=== PATIENT | female | born 1990 | race Caucasian/White ===

== ENCOUNTER 2018-05-20 09:11 | Emergency (ER) | payer BC, OTHER ==
[~2018-05-20] VITALS: Ht 162.6 cm; Wt 54.4 kg
[2018-05-20] MEDS ORDERED: NS IV 1000 ML 1,000 ML ONE (09:35)
--- NOTE | 2018-05-20 09:56 | ED General ---
General Chief Complaint: Abdominal/GI Problems Stated Complaint: DIZZY,NAUSEA,LT SIDE PAIN Nursing Triage Note: PT REPORTS SHE HAS NAUSEA, DIZZINESS, AND FLANK PAIN. SHE HAS A FEAR SHE HAS CANCER OR SOMETHING REALLY BAD. Nursing Sepsis Screen: No Definite Risk Source of Information: Patient, Spouse Exam Limitations: No Limitations History of Present Illness Date Seen by Provider: May 20, 2018 Time Seen by Provider: 09:38 Initial Comments Patient is a 28-year-old female presenting with complaints of dizziness for this week. She has also had a few weeks of left-sided rib pain. She has been losing weight without trying over the last few weeks. She denies any cough or shortness of breath. She has intermittent nausea. She states the dizziness is not related to position. She denies any trauma to her head or side. She has had labs recently through the clinic that were normal. She did have a ovarian cyst on the right as well as enlarged liver recently on an ultrasound. She also recently had upper respiratory infection but states that she feels better from that. She is currently on her menstrual period. She has been worried that she has some form of cancer causing her symptoms. Allergies and Home Medications Allergies Coded Allergies: No Known Drug Allergies (Unverified , 05/20/18) Patient Home Medication List Home Medication List Reviewed: Yes Review of Systems Review of Systems Constitutional: see HPI; No chills; dizziness; No fever; malaise, weight loss EENTM: No ear discharge, No ear pain, No blurred vision, No eye pain, No vision loss, No hoarseness, No mouth pain, No throat pain, No throat swelling Respiratory: see HPI; No cough, No dyspnea on exertion, No hemoptysis, No short of breath, No stridor, No wheezing Cardiovascular: chest pain (left lateral rib pain); No palpitations, No syncope Gastrointestinal: LUQ (along with lower rib pain), nausea, other (bowels going between constipation and loose stools) Genitourinary: No dysuria : No LMP: May 19, 2018 Musculoskeletal: other (left chest wall pain) Skin: No pruritus, No rash Psychiatric/Neurological: Anxiety (worried that she has cancer or some terminal disease), Emotional Problems (anxious and tearful about everything recently); Denies Headache Hematologic/Lymphatic: Denies Blood Clots, Denies Easy Bleeding, Denies Easy Bruising Past Nnuecqm-Ibwvwd-Zgmyih Hx Past Med/Social Hx: Reviewed Nursing Past Med/Soc Hx Patient Social History Alcohol Use: Occasionally Uses Smoking Status: Never a Smoker Recent Foreign Travel: No Contact w/Someone Who Travel: No Recent Infectious Disease Expo: No Recent Hopitalizations: No Past Medical History : No Last Menstrual Period: May 20, 2018 Female Reproductive Disorders: Ovarian Cyst Sleep Difficulties (not sleeping well due to having young child), Anxiety Physical Exam Vital Signs Vital Signs - First Documented 05/20/18 09:25 Temp 98.9 Pulse 74 Resp 18 B/P (MAP) 131/70 (90) Pulse Ox 99 O2 Delivery Room Air Capillary Refill : Less Than 3 Seconds Height, Weight, BMI Height: 5'4.00" Weight: 120lbs. oz. 54.463532dm; BMI Method:Estimated General Appearance: Anxious, Thin Eyes: Bilateral Eye Normal Inspection, Bilateral Eye PERRL, Bilateral Eye EOMI (no nystagmus) HEENT: PERRL/EOMI, TMs Normal, Moist Mucous Membranes Neck: Full Range of Motion, Normal Inspection, Non Tender, Supple Respiratory: Lungs Clear, Normal Breath Sounds, No Accessory Muscle Use, No Respiratory Distress; No Pleural Rub; Other (tender to left lower ribs from posterior wrapping around to the anterior chest) Cardiovascular: Regular Rate, Rhythm, No Edema, No Murmur, Normal Peripheral Pulses Gastrointestinal: Normal Bowel Sounds, No Organomegaly, No Pulsatile Mass, Soft , Tenderness (LUQ area) Back: Normal Inspection Extremity: Normal Capillary Refill, Normal Inspection, Normal Range of Motion Neurologic/Psychiatric: Alert, Oriented x3, No Motor/Sensory Deficits, global program director II- XII Norm as Tested Skin: Normal Color, Warm/Dry Progress/Results/Core Measures Suspected Sepsis Recent Fever Within 48 Hours: No Infection Criteria Present: None New/Unexplained Altered Menta: No Sepsis Screen: No Definite Risk SIRS Temperature:98.9 Pulse: 74 Respiratory Rate: 18 Laboratory Tests 05/20/18 09:38: White Blood Count 7.6 Blood Pressure 131 /70 Mean: 90 Laboratory Tests 05/20/18 09:38: Creatinine 0.64, Platelet Count 336, Total Bilirubin 0.9 Results/Orders Lab Results Laboratory Tests Test 05/20/18 09:38 Range/Units White Blood Count 7.6 4.3-11.0 10^3/uL Red Blood Count 4.46 4.35-5.85 10^6/uL Hemoglobin 13.5 11.5-16.0 G/DL Hematocrit 41 35-52 % Mean Corpuscular Volume 91 80-99 FL Mean Corpuscular Hemoglobin 30 25-34 PG Mean Corpuscular Hemoglobin Concent 33 32-36 G/DL Red Cell Distribution Width 12.4 10.0-14.5 % Platelet Count 336 130-400 10^3/uL Mean Platelet Volume 8.8 7.4-10.4 FL Neutrophils (%) (Auto) 74 42-75 % Lymphocytes (%) (Auto) 20 12-44 % Monocytes (%) (Auto) 6 0-12 % Eosinophils (%) (Auto) 0 0-10 % Basophils (%) (Auto) 0 0-10 % Neutrophils # (Auto) 5.6 1.8-7.8 X 10^3 Lymphocytes # (Auto) 1.5 1.0-4.0 X 10^3 Monocytes # (Auto) 0.4 0.0-1.0 X 10^3 Eosinophils # (Auto) 0.0 0.0-0.3 10^3/uL Basophils # (Auto) 0.0 0.0-0.1 10^3/uL Sodium Level 139 135-145 MMOL/L Potassium Level 4.1 3.6-5.0 MMOL/L Chloride Level 104 98-107 MMOL/L Carbon Dioxide Level 14 L 21-32 MMOL/L Anion Gap 21 H 5-14 MMOL/L Blood Urea Nitrogen 14 7-18 MG/DL Creatinine 0.64 0.60-1.30 MG/DL Estimat Glomerular Filtration Rate > 60 BUN/Creatinine Ratio 22 Glucose Level 110 H 70-105 MG/DL Calcium Level 9.3 8.5-10.1 MG/DL Corrected Calcium 8.5-10.1 MG/DL Total Bilirubin 0.9 0.1-1.0 MG/DL Aspartate Amino Transf (AST/SGOT) 14 5-34 U/L Alanine Aminotransferase (ALT/SGPT) 9 0-55 U/L Alkaline Phosphatase 52 40-136 U/L Total Protein 7.3 6.4-8.2 GM/DL Albumin 4.7 H 3.2-4.5 GM/DL Lipase 34 8-78 U/L Monoscreen NEGATIVE NEGATIVE My Orders Orders - ENYART,CELI E MD Ns Iv 1000 Ml (Sodium Chloride 0.9%) (05/20/18 09:35) Cbc With Automated Diff (05/20/18 09:48) Comprehensive Metabolic Panel (05/20/18 09:48) Lipase (05/20/18 09:48) Monotest (05/20/18 09:48) Ct Head Wo (05/20/18 09:48) Meclizine Tablet (Antivert Tablet) (05/20/18 10:15) Meclizine Tablet (Antivert Tablet) (05/20/18 10:04) Ct Chest W (05/20/18 10:32) Iopamidol 61% Injection (Isovue 300 61% (05/20/18 10:45) Sodium Chloride Flush (Catheter Flush Sy (05/20/18 10:45) Contrast Received (Contrast Received) (05/20/18 10:45) Ns (Ivpb) (Sodium Chloride 0.9% Ivpb Bag (05/20/18 10:45) Medications Given in ED Current Medications Medications Dose Ordered Sig/Radha Route Start Time Stop Time Status Last Admin Dose Admin Iopamidol 100 ml ONCE ONCE IV 05/20/18 10:45 05/20/18 10:47 DC 05/20/18 10:54 100 ML Meclizine HCl 25 mg STK-MED ONCE .ROUTE 05/20/18 10:04 05/20/18 10:06 DC 05/20/18 10:00 25 MG Sodium Chloride 10 ml NEEDED PRN IV 05/20/18 10:45 05/20/18 12:29 DC 05/20/18 10:54 10 ML Sodium Chloride 50 ml ONCE ONCE IV 05/20/18 10:45 05/20/18 10:47 DC 05/20/18 10:54 50 ML Sodium Chloride 1,000 ml @ ud STK-MED ONCE .ROUTE 05/20/18 09:35 05/20/18 09:36 DC 05/20/18 09:42 1,000 MLS/HR Vital Signs/I&O 05/20/18 05/20/18 09:25 12:27 Temp 98.9 98.3 Pulse 74 82 Resp 18 16 B/P (MAP) 131/70 (90) 122/78 (93) Pulse Ox 99 100 O2 Delivery Room Air Room Air Capillary Refill : Less Than 3 Seconds Blood Pressure Mean: 90 Progress Note : Time: 10:24 Progress Note Reviewed negative lab results with patient and family. Awaiting CT head results. Upon further discussion about imaging of her chest and ribs patient and spouse were asking about possible CT scan of the chest instead of just plain films of the chest. I did review the pros and cons of radiation exposure versus getting finer detail to look at the lungs and upper abdomen area. After this discussion. Agreed to do a CT scan of the chest to further evaluate her left lateral rib pain. On recheck she has no acute findings on the CT head and waiting on the CT chest still The CT scan of the chest did not show any further reason for her to have pain in the left lower ribs. Reviewed with pt and family. Will have her check with counsellor about her anxiety. Will have her try some antivert medicine for the next few days to see if that helps her dizziness as well. Diagnostic Imaging Diagonstic Imaging: CT Plain Films/CT/US/NM/MRI: chest, head Comments [facility], [place] NAME: EMPERATRIZ CABRALES [facility] REC#: [id number] PT STATUS: REG ER : 1990 PHYSICIAN: CELI CHAN MD ADMIT DATE: 05/20/18/ER FS Draft Date of Exam:05/20/18 CT HEAD WO PROCEDURE: CT head without contrast. TECHNIQUE: Multiple contiguous axial images were obtained through the brain without the use of intravenous contrast. INDICATION: Two weeks of dizziness and nausea. FINDINGS: There are no CT findings of an acute intracranial abnormality. There is no evidence of intracranial hemorrhage. There is no intracranial mass effect or shift. Gómez-white matter differentiation appear maintained and appropriate. There is no abnormal hypodensity within the basal ganglia or within the cierra. Posterior fossa is unremarkable and the basilar cisterns appear patent. The mastoid air cells are clear. Visualized paranasal sinuses clear. Orbital contents unremarkable. No calvarial abnormality demonstrated. IMPRESSION: 1. No CT evidence of an acute intracranial abnormality. Dictated on workstation # [id number] Dict: 05/20/18 1011 Trans: 05/20/18 1031 ZION [id number] Interpreted by: RAYMUNDO SPEARS MD Electronically signed by: Departure Impression Primary Impression: Dizziness Additional Impressions: Rib pain on left side Anxiety about health Disposition: 01 HOME, SELF-CARE Condition: Stable Departure-Patient Inst. Decision time for Depature: 11:55 Referrals: JOSE MOHAN MD (PCP/Family) Primary Care Physician Patient Instructions: Chest Pain That Is Not Caused by the Heart (DC), Dizziness, Nonvertigo, (DC) Add. Discharge Instructions: Follow-up with the clinic for further evaluation as needed. Your testing here today has all looked okay. All discharge instructions reviewed with patient and/or family. Voiced understanding. CELI CHAN MD May 20, 2018 09:56
[2018-05-20 10:03] LABS: HEMATOCRIT 41 % (35-52); HEMOGLOBIN 13.5 G/DL (11.5-16.0); MEAN CORPUSCULAR HEMOGLOBIN 30 PG (25-34); MEAN CORPUSCULAR HGB CONC 33 G/DL (32-36); MEAN CORPUSCULAR VOLUME 91 FL (80-99); RED CELL DISTRIBUTION WIDTH 12.4 % (10.0-14.5); WHITE BLOOD COUNT 7.6 10^3/uL (4.3-11.0)
[2018-05-20 10:04] LABS: BASOPHILS % (AUTO) 0 % (0-10); EOSINOPHILS % (AUTO) 0 % (0-10); LYMPHOCYTES # (AUTO) 1.5 X 10^3 (1.0-4.0); LYMPHOCYTES % (AUTO) 20 % (12-44); MEAN PLATELET VOLUME 8.8 FL (7.4-10.4); MONOCYTES # (AUTO) 0.4 X 10^3 (0.0-1.0); MONOCYTES % (AUTO) 6 % (0-12); NEUTROPHILS # (AUTO) 5.6 X 10^3 (1.8-7.8); NEUTROPHILS % (AUTO) 74 % (42-75); PLATELET COUNT 336 10^3/uL (130-400)
[2018-05-20] MEDS ORDERED: MECLIZINE 25 MG (ANTIVERT) TAB ONE (10:04)
[2018-05-20] MEDS ORDERED: MECLIZINE 25 MG (ANTIVERT) TAB PO ONE (10:15)
[2018-05-20 10:18] LABS: ALANINE AMINOTRANSFERASE 9 U/L (0-55); ALKALINE PHOSPHATASE 52 U/L (40-136); BILIRUBIN,TOTAL 0.9 MG/DL (0.1-1.0); BUN/CREATININE RATIO 22; CALCIUM 9.3 MG/DL (8.5-10.1); CARBON DIOXIDE 14 MMOL/L (21-32); CHLORIDE 104 MMOL/L (98-107); CREATININE SERUM 0.64 MG/DL (0.60-1.30); GFR ESTIMATED > 60; GLUCOSE 110 MG/DL (70-105); POTASSIUM 4.1 MMOL/L (3.6-5.0); SODIUM 139 MMOL/L (135-145); TOTAL PROTEIN 7.3 GM/DL (6.4-8.2)
[2018-05-20 10:19] LABS: ALBUMIN 4.7 GM/DL (3.2-4.5); LIPASE 34 U/L (8-78)
--- NOTE | 2018-05-20 10:31 | Diagnostic Imaging Report ---
PROCEDURE: CT head without contrast. TECHNIQUE: Multiple contiguous axial images were obtained through the brain without the use of intravenous contrast. INDICATION: Two weeks of dizziness and nausea. FINDINGS: There are no CT findings of an acute intracranial abnormality. There is no evidence of intracranial hemorrhage. There is no intracranial mass effect or shift. Gómez-white matter differentiation appear maintained and appropriate. There is no abnormal hypodensity within the basal ganglia or within the cierra. Posterior fossa is unremarkable and the basilar cisterns appear patent. The mastoid air cells are clear. Visualized paranasal sinuses clear. Orbital contents unremarkable. No calvarial abnormality demonstrated. IMPRESSION: 1. No CT evidence of an acute intracranial abnormality. Dictated by: Dictated on workstation # [id number]
[2018-05-20] MEDS ORDERED: IOPAMIDOL 61% 100 ML (ISOVUE 300) VIAL IV ONE (10:45)
[2018-05-20] MEDS ORDERED: NS 50 ML (IVPB) BAG IV ONE (10:45)
[2018-05-20] MEDS ORDERED: RECEIVED CONTRAST 20 ML VIAL IV SCH (10:45)
[2018-05-20] MEDS ORDERED: CATHETER FLUSH 10 ML SYR IV PRN (10:45)
--- NOTE | 2018-05-20 11:51 | Diagnostic Imaging Report ---
PROCEDURE: CT chest with contrast only. TECHNIQUE: Multiple contiguous axial images were obtained through the chest after administration of intravenous contrast. INDICATION: Left-sided rib and lower chest pain. Patient reports pain for several weeks. Weight loss. FINDINGS: The lungs demonstrate no focal pulmonary infiltrate or consolidation. There is no effusion. There is no pneumothorax. There is no pulmonary nodule or mass. The thoracic aorta is normal in caliber without evidence of aneurysm or dissection. The main pulmonary is normal in size. Contrast timing was not optimized for evaluation of the pulmonary arteries. Heart does appear normal. There is no pericardial effusion. There are no pathologically enlarged mediastinal, hilar or axillary lymph nodes. There is mild asymmetry and the volume of glandular tissue within the breasts with the right being slightly larger than the left. No focal abnormality evident. There are no findings of a rib fracture or of acute thoracic osseous abnormality. The visualized portion of the upper abdomen demonstrates no acute process or significant abnormality. IMPRESSION: 1. Lungs are clear without focal infiltrate or effusion. There is no pulmonary nodule or mass. 2. No pathologic adenopathy. 3. Thoracic aorta unremarkable. 4. Asymmetric volume of breast glandular parenchyma. There is no focal abnormality. 5. No acute or suspicious osseous abnormality. Dictated by: Dictated on workstation # [id number]
[2018-05-20 12:27] VITALS: BP 122/78
== END 2018-05-20 12:16 | disposition home or self-care (01) ==
LOC: ER FS 09:14
DX: R42 Dizziness and giddiness (principal); R07.81 Pleurodynia; F41.9 Anxiety disorder, unspecified; Z87.448 Personal history of other diseases of urinary system
CPT/HCPCS: 36415; 70450; 71260; 80053; 83690; 85025; 86308

== ENCOUNTER 2018-11-28 09:30 | Outpatient (CLI) | payer BC ==
[~2018-11-28] VITALS: Ht 162.6 cm; Wt 56.7 kg
[2018-11-28] MEDS ORDERED: NF-ESOM40C PO (10:08)
== END 2018-11-28 10:41 | disposition home or self-care (01) ==
LOC: PREOP 09:30
PROVIDERS: ATTEND Pediatrics
DX: Z01.818 Encounter for other preprocedural examination (principal)

== ENCOUNTER 2018-11-29 12:24 | Day surgery (SDC) | payer BC ==
[~2018-11-29] VITALS: Ht 162.6 cm; Wt 56.7 kg
[2018-11-29] VITALS (7 sets, daily range): BP systolic 94–117; BP diastolic 57–72
[~2018-11-29 12:24] MED LIST: NF-ESOM40C PO
[2018-11-29] MEDS ORDERED: NS IV 500 ML 500 ML ONE (12:48)
[2018-11-29] MEDS ORDERED: MIDAZOLAM 2 MG/2 ML (VERSED) VIAL ONE ×3 (12:59)
[2018-11-29] MEDS ORDERED: HURRICAINE EXT TUBE (BENZOCAINE) ONE (12:59)
[2018-11-29] MEDS ORDERED: fentaNYL INJECTION 100 MCG/2 ML AMP ONE (12:59)
[2018-11-29] MEDS ORDERED: NS IV 500 ML 500 ML IV PRN (13:08)
[2018-11-29] MEDS ORDERED: MIDAZOLAM 2 MG/2 ML (VERSED) VIAL IVP ONE (13:15)
[2018-11-29] MEDS ORDERED: fentaNYL INJECTION 100 MCG/2 ML AMP IVP ONE (13:15)
[2018-11-29] MEDS ORDERED: HURRICAINE EXT TUBE (BENZOCAINE) XX PRN (13:15)
--- NOTE | 2018-11-29 13:33 | Progress Note-Pre Operative ---
Pre-Operative Progress Note H&P Reviewed The H&P was reviewed, patient examined and no changes noted. Date Seen by Provider: Nov 29, 2018 Time Seen by Provider: 13:32 Date H&P Reviewed: Nov 29, 2018 Time H&P Reviewed: 13:33 Pre-Operative Diagnosis: JILLIAN Damon MD Nov 29, 2018 13:33
--- NOTE | 2018-11-29 13:35 | Endoscopy Procedure Report ---
EGD Procedure Performed: EGD Pre-Operative Diagnosis: gerd Post-Operative Diagnosis: hiatal hernia Drilling Field Specialist: None. Procedure Details: Informed consent was obtained for the procedure, including conscious sedation. Risks of pancreatitis, infection, perforation, hemorrhage, adverse drug reaction, and aspiration were discussed. Edgar Millard, a 28 yr old female, was brought to the surgery area, sedated with 4mg OF Versed and 50 ug of fentanyl. The patient was placed in the left lateral decubitus position. He was monitored continuously with ECG tracing, pulse oximetry, blood pressure monitoring and direct observation. The olympus gastroscope was inserted into the mouth and advanced under direct vision to second portion of the duodenum. A careful inspection was made as the gastroscope was withdrawn, including a retroflexed view of the proximal stomach; findings and interventions are described below. Appropriate photodocumentation. Findings: mild to moderate hiatal hernia with mild tenting of stomach from above Estimated Blood Loss: 0mL Specimens: antral biopsy Complications: None; patient tolerated the procedure well. JILLIAN MILLARD MD Nov 29, 2018 13:35
== END 2018-11-29 14:10 | disposition home or self-care (01) ==
LOC: ENDO 12:24
PROVIDERS: ATTEND Pediatrics
DX: K21.9 Gastro-esophageal reflux disease without esophagitis (principal); K44.9 Diaphragmatic hernia without obstruction or gangrene; Z79.899 Other long term (current) drug therapy
CPT/HCPCS: 88305